=== PATIENT | male | born 1945 | race Caucasian/White ===

== ENCOUNTER 2017-10-12 17:32 | Inpatient (IN) | payer MEDICARE, OTHER ==
[~2017-10-12] VITALS: Ht 165.1 cm; Wt 54.0 kg
--- NOTE | 2017-10-12 17:35 | NUR ---
BIB RELATIVE C/O CHEST PAIN ABOUT 12-20 MIN CAN PUSHER. PATIENT IS A/OX 1, BREATHING EVEN AND UNLABORED. NO SOB, NAD, VITALS STABLE. SAFETY AND COMFORT MEASURES IN PLACE. AWAITING MD ORDERS.
[2017-10-12] MEDS ORDERED: ACETAMINOPHEN 650 MG/SUPP.RECT RC ONE ×2 (17:52→18:00)
[2017-10-12] MEDS ORDERED: IV NS 0.9% 1,000 ML BAG IV ONE ×2 (18:00→19:30)
[2017-10-12] MEDS ORDERED: PIPERACILLIN /TAZOBACTAM 3.375 G in IV D5W 50 ML IV ONE (18:00)
[2017-10-12 18:01] LABS: BASOPHILS # (AUTO) 0.1 /CMM (0.0-0.2); BASOPHILS % (AUTO) 1.1 % (0.0-2.0); EOSINOPHILS % (AUTO) 0.4 % (0.0-6.0); HEMATOCRIT 41 % (39-51); HEMOGLOBIN 13.6 g/dL (13.5-17.5); LYMPHOCYTES # (AUTO) 0.3 /CMM (0.8-4.8); LYMPHOCYTES % (AUTO) 3.2 % (20.0-44.0); MEAN CORPUSCULAR HGB CONC 33 g/dl (31.0-36.0); MEAN CORPUSCULAR VOLUME 90 fL (80-96); MONOCYTES # (AUTO) 0.6 /CMM (0.1-1.30); MONOCYTES % (AUTO) 5.9 % (2.0-12.0); NEUTROPHILS # (AUTO) 9.1 /CMM (1.8-8.9); NEUTROPHILS % (AUTO) 89.4 % (43.0-81.0); PLATELET COUNT (AUTO) 243 /CMM (150-450); RDW COEFFICIENT OF VARIATION 15.6 (11.5-15.0); RED BLOOD CELL COUNT(AUTO) 4.61 MIL/uL (4.5-6.0); WHITE BLOOD COUNT (AUTO) 10.1 K/uL (4.3-11.0)
--- NOTE | 2017-10-12 18:06 | NUR ---
URINE COLLECTED VIA STRAIGHT CATH. CALLED LAB FOR SOFTWARE ENGINEER ADVISOR.
[2017-10-12] MEDS ORDERED: PIPERACILLIN /TAZOBACTAM 3.375 G VIAL IV ONE (18:07)
--- NOTE | 2017-10-12 18:10 | NUR ---
RADIOLOGY AT BEDSIDE FOR CXR
[2017-10-12 18:16] LABS: INR 0.97 (0.85-1.15)
[2017-10-12 18:19] LABS: ALANINE AMINOTRANSFERASE 30 U/L (12-78); ALBUMIN 3.4 g/dL (3.4-5.0); ALKALINE PHOSPHATASE 157 U/L (46-116); ASPARTATE AMINOTRANSFERASE 28 U/L (15-37); BILIRUBIN,DIRECT 0.2 mg/dL (0.0-0.2); BILIRUBIN,TOTAL 0.3 mg/dL (0.2-1.0); CALCIUM, SERUM 8.8 mg/dL (8.5-10.1); CARBON DIOXIDE 19 mmol/L (21-32); CHLORIDE 110 mmol/L (98-107); CREATININE 3.7 mg/dL (0.6-1.3); GLUCOSE 151 mg/dL (74-106); POTASSIUM 6.1 mmol/L (3.5-5.1); SODIUM SERUM 141 mmol/L (136-145); UREA NITROGEN, BLOOD 61 mg/dL (7-18)
--- NOTE | 2017-10-12 18:20 | NUR ---
RECTAL TEMP 101.9 DR. ELLIOTT MADE AWARE
[2017-10-12 18:22] LABS: TROPONIN I < 0.017 ng/mL (0.00-0.056)
[2017-10-12 18:53] LABS: APPEARANCE,URINE Clear (CLEAR); BILIRUBIN,URINE Negative (NEGATIVE); BLOOD, URINE Trace-lysed Ery/uL (NEGATIVE); COLOR,URINE Yellow (YELLOW); KETONES,URINE Negative (NEGATIVE); LEUKOCYTE ESTERASE ,URINE Negative (NEGATIVE); NITRITE, URINE Negative (NEGATIVE); PH,URINE 5.5 (5.0-8.0); PROTEIN,URINE >=300 mg/dl (NEGATIVE); UGLUCOSE Negative (NEGATIVE); UROBILINOGEN,URINE 0.2 EU/dL (0.2)
[2017-10-12 19:22] LABS: BACTERIA,URINE Rare /HPF (None Seen); RBC,URINE 2-3/HPF /HPF (0-2); SQUAMOUS EPITHELIAL CELL,UR Few /HPF (None Seen); WBC,URINE 0-2 /HPF (0-3)
[2017-10-12 19:23] LABS: MUCUS,URINE Few /LPF (None Seen); URINE AMORPHOUS URATE Many /HPF (None Seen)
--- NOTE | 2017-10-12 19:30 | NUR ---
CALLED NURSING SUPERVISOR [employer] AND REQUESTED A TELE BED FOR THIS PT.
--- NOTE | 2017-10-12 19:56 | NUR ---
ORAL TEMP 99. DR. ELLIOTT MADE AWARE
[2017-10-12 20:00] VITALS: BP 121/75
--- NOTE | 2017-10-12 20:00 | NUR ---
CALLED [facility] AND A PAGE WAS SENT OUT TO DR YADAV
--- NOTE | 2017-10-12 20:01 | NUR ---
PT IS ASSIGNED TO [facility]#: [id number], PT IS DIAGNOSED WITH SEPSIS, AND DR YADAV IS THE ACCEPTING MD
[2017-10-12] MEDS ORDERED: TRAM50TA2 PO (20:15)
[2017-10-12] MEDS ORDERED: LISI10TA5 PO (20:15)
[2017-10-12] MEDS ORDERED: OLAN5TAB3 PO (20:15)
[2017-10-12] MEDS ORDERED: DONE5TAB34 PO (20:15)
[2017-10-12] MEDS ORDERED: TEMA15CA PO (20:15)
[2017-10-12] MEDS ORDERED: ACET650T12 PO (20:15)
--- NOTE | 2017-10-12 20:16 | NUR ---
REPORT GIVEN TO KELLEN FOR [facility] BED 112-2
[2017-10-12] MEDS ORDERED: SODIUM POLYSTYRENE SULFONATE 15 G/60 ML BOTTLE ONE (20:28)
[2017-10-12] MEDS ORDERED: SODIUM POLYSTYRENE SULFONATE 15 G/60 ML BOTTLE PO ONE (20:30)
--- NOTE | 2017-10-12 20:46 | NUR ---
PT TRANSFERRED PER ACLS PROTOCOL.
[2017-10-12 21:00] VITALS: BP 121/75
[2017-10-12] MEDS ORDERED: ACETAMINOPHEN 325 MG TABLET PO PRN (21:00)
[2017-10-12] MEDS ORDERED: Z GUARD REMEDY 2 OZ OINT TP PRN (21:00)
[2017-10-12] MEDS ORDERED: ZOLPIDEM TARTRATE 5 MG TABLET PO PRN (21:00)
[2017-10-12] MEDS ORDERED: MAGNESIUM HYDROXIDE 30 ML UDC PO PRN (21:00)
[2017-10-12] MEDS ORDERED: ONDANSETRON HCL/PF 4 MG/2 ML VIAL IVP PRN (21:00)
[2017-10-12] MEDS ORDERED: TRAMADOL HCL 50 MG TABLET PO PRN (21:00)
[2017-10-12] MEDS ORDERED: HYDROCODONE/APAP 5/325MG 1 EACH TABLET PO PRN (21:00)
[2017-10-12] MEDS ORDERED: MAG HYDROX/AL HYDROX/SIMETH 30 ML UDC PO PRN (21:00)
[2017-10-12] MEDS ORDERED: ALBUTEROL FS 2.5 MG/3 ML VIAL.NEB NEB PRN (21:30)
[2017-10-12] MEDS ORDERED: VANCOMYCIN 1 GM in IV NS 0.9% 250 ML IV SCH (21:30)
[2017-10-12] MEDS ORDERED: hydrALAZINE HCL IV 20 MG VIAL IV PRN (21:30)
[2017-10-12] MEDS: IV NS 0.9% 1,000 ML IV PRN (21:38)
[2017-10-12] MEDS ORDERED: VANCOMYCIN 1 GM VIAL ONE (21:46)
[2017-10-12] MEDS ORDERED: VANCOMYCIN 1 GM in IV D5W 250 ML IV ONE (22:00)
[2017-10-12] MEDS ORDERED: ENOXAPARIN SODIUM 30 MG/0.3 ML DISP.SYRIN SQ SCH ×2 (22:00)
--- NOTE | 2017-10-12 23:03 | NUR ---
SUPERVISOR FRYER [employer]ARM NOTES RECEIVED PT FROM ER. REPORT GIVEN BY MARIO. PATIENT VITAL SIGN 127/78 HR OF 99 RESPI OF 15 AND O2 SAT AT 98 ON NASAL CANNULA 2L. NO SIGN OF RESPIRATORY DISTRESS OR SOB. PATIENT CLEANED AND PICTURE WAS TAKEN. WILL CONTINUE TO MONITOR PT CLOSELY. Addendum: 10/12/17 at 2305 by TIGIST JENKINS RN TEMP IS 98.8.
[2017-10-13] VITALS: BP 134/70
[2017-10-13 00:13] LABS: CARBON DIOXIDE 18 mmol/L (21-32); CHLORIDE 114 mmol/L (98-107); CREATININE 3.7 mg/dL (0.6-1.3); GLUCOSE 145 mg/dL (74-106); POTASSIUM 5.1 mmol/L (3.5-5.1); SODIUM SERUM 143 mmol/L (136-145); UREA NITROGEN, BLOOD 54 mg/dL (7-18)
--- NOTE | 2017-10-13 00:30 | NUR ---
DIRECTOR OF REGULATORY AFFAIRS NOTES PATIENT REFUSED TO TAKE AMBIEN FOR SLEEPING.
[2017-10-13] MEDS ORDERED: PIPERACILLIN /TAZOBACTAM 2.25 G VIAL IV ONE (01:29)
--- NOTE | 2017-10-13 03:02 | NUR ---
INVERTED BLOCK OPERATOR NOTES PATIENT TRYING TO GET OUT OF BED, CONFUSED. BED ALARM ON. REORIENTED TO PLACE, TIME.
[2017-10-13 04:00] VITALS: BP 136/74
[2017-10-13] MEDS: PIPERACILLIN /TAZOBACTAM 2.25 G in IV NS 0.9% 50 ML IV SCH ×3 (04:40→20:37)
[2017-10-13 07:12] LABS: BASOPHILS % (AUTO) 0.1 % (0.0-2.0); HEMATOCRIT 38 % (39-51); HEMOGLOBIN 12.4 g/dL (13.5-17.5); LYMPHOCYTES % (AUTO) 7.9 % (20.0-44.0); MEAN CORPUSCULAR HGB CONC 33 g/dl (31.0-36.0); MEAN CORPUSCULAR VOLUME 90 fL (80-96); MONOCYTES # (AUTO) 0.5 /CMM (0.1-1.30); MONOCYTES % (AUTO) 3.6 % (2.0-12.0); NEUTROPHILS # (AUTO) 11.5 /CMM (1.8-8.9); NEUTROPHILS % (AUTO) 86.4 % (43.0-81.0); PLATELET COUNT (AUTO) 237 /CMM (150-450); RDW COEFFICIENT OF VARIATION 16.1 (11.5-15.0); RED BLOOD CELL COUNT(AUTO) 4.16 MIL/uL (4.5-6.0); WHITE BLOOD COUNT (AUTO) 13.3 K/uL (4.3-11.0)
--- NOTE | 2017-10-13 07:14 | NUR ---
REAL ESTATE ASSOCIATE ATTORNEY NOTES NO ACUTE CHANGES NOTED DURING THE SHIFT. DUE MEDS GIVEN. PROVIDED COMFORT AND SAFETY. WILL ENDORSE TO THE AM NURSE
--- NOTE | 2017-10-13 07:21 | NUR ---
RN NOTES RECEIVED PT FROM TREASURY MANAGEMENT SALES CONSULTANT, A&0X2 ON 2L NC SATING WELL NO SOB OR DISTRESS NOTED. SR ON THE TELE MIKE HR 88. LLFA 20G IV SITE INTACT WITH IVF AT 75ML/HR. BED LOCKED AND IN LOWEST POSITION, CALL LIGHT WITHIN REACH, SIDE RAILS UPX3, WILL CONT TO MIKE.
[2017-10-13 07:26] LABS: CARBON DIOXIDE 19 mmol/L (21-32); CHLORIDE 115 mmol/L (98-107); CREATININE 3.3 mg/dL (0.6-1.3); GLUCOSE 76 mg/dL (74-106); MAGNESIUM 1.6 mg/dL (1.8-2.4); POTASSIUM 5.3 mmol/L (3.5-5.1); SODIUM SERUM 145 mmol/L (136-145); UREA NITROGEN, BLOOD 51 mg/dL (7-18)
[2017-10-13 07:27] LABS: CHOLESTEROL 114 mg/dL (<200); HDL CHOLESTEROL 40 mg/dL (40-60); LDL 63 mg/dL (0-99); TRIGLYCERIDES 62 mg/dL (30-150)
[2017-10-13 08:00] VITALS: BP 129/78
[2017-10-13] MEDS: OLANZAPINE 5 MG TABLET PO SCH ×2 (08:33→16:19)
[2017-10-13] MEDS: DONEPEZIL 5 MG TABLET PO SCH (08:33)
[2017-10-13] MEDS ORDERED: FEE PK DOSING 1 MIN EA MC ONE (08:33)
[2017-10-13] MEDS ORDERED: LISINOPRIL (10MG) 10 MG TABLET PO SCH (09:00)
[2017-10-13 12:00] VITALS: BP 108/62
[2017-10-13] MEDS: HEPARIN SODIUM, PORCINE 5000 UNITS/1 ML VIAL SQ SCH ×2 (12:09→23:04)
[2017-10-13] MEDS ORDERED: LACTULOSE 10 G/15 ML UDC (PYXIS) PO ONE (14:00)
[2017-10-13] MEDS ORDERED: Magnesium 1GM/D5W 100ML PREMIX PIGGYBACK IV ONE (14:30)
[2017-10-13 16:00] VITALS: BP 109/62
[2017-10-13] MEDS: IV NS 0.9% 1,000 ML IV PRN (16:18)
[2017-10-13] MEDS ORDERED: TEMAZEPAM 15 MG CAPSULE PO SCH (18:00)
--- NOTE | 2017-10-13 18:26 | NUR ---
RN NOTES PT REMAINED IN STABLE CONDITION THROUGHOUT THE SHIFT, ALL NEEDS MET. NO SIGNIFICANT CHANGES NOTED. WILL ENDORSE TO ONCOMING SHIFT.
--- NOTE | 2017-10-13 19:17 | NUR ---
DIORAMIST NOTES RECEIVED PT ON BED X3 WITH EPISODES OF CONFUSION. ON NC 2LPM SATURATING WELL. ON TELE MONITOR SR. IV ACCESS ON LFA #20 NS @75CC/HR. HEAD OF BED ELEVATED. SIDE RAILS UP. CALL LIGHT WITHIN REACH. BED ALARM ON. WILL CONTINUE TO MONITOR PT CLOSELY.
[2017-10-13 20:00] VITALS: BP 103/56
[2017-10-14] VITALS: BP 99/57
[2017-10-14 04:00] VITALS: BP 119/60
[2017-10-14] MEDS: IV NS 0.9% 1,000 ML IV PRN ×2 (04:45→20:17)
[2017-10-14] MEDS: PIPERACILLIN /TAZOBACTAM 2.25 G in IV NS 0.9% 50 ML IV SCH ×3 (04:45→20:17)
--- NOTE | 2017-10-14 07:25 | NUR ---
PIPELINER NOTES NO ACUTE CHANGES NOTED DURING THE SHIFT. PROVIDED COMFORT AND SAFETY. DUE MEDS GIVEN. WILL ENDORSE TO THE PM NURSE FOR SILVER.
[2017-10-14 07:50] LABS: BASOPHILS % (AUTO) 0.1 % (0.0-2.0); HEMATOCRIT 33 % (39-51); HEMOGLOBIN 10.9 g/dL (13.5-17.5); LYMPHOCYTES # (AUTO) 1.8 /CMM (0.8-4.8); MEAN CORPUSCULAR HGB CONC 33 g/dl (31.0-36.0); MEAN CORPUSCULAR VOLUME 91 fL (80-96); MONOCYTES # (AUTO) 0.8 /CMM (0.1-1.30); MONOCYTES % (AUTO) 5.6 % (2.0-12.0); NEUTROPHILS # (AUTO) 11.2 /CMM (1.8-8.9); NEUTROPHILS % (AUTO) 79.3 % (43.0-81.0); PLATELET COUNT (AUTO) 211 /CMM (150-450); RED BLOOD CELL COUNT(AUTO) 3.67 MIL/uL (4.5-6.0); WHITE BLOOD COUNT (AUTO) 14.2 K/uL (4.3-11.0)
--- NOTE | 2017-10-14 07:55 | NUR ---
INTERNATIONAL MARKETING COORDINATOR NOTE: RECEIVED PATIENT IN BED, AWAKE, ALERT W/ BOUTS OF CONFUSION. ON RECRUITMENT INTERNSHIP, SB HR= 45-55. ON O2 2L/MIN VIA NC SATURATING 97%. DENIED ANY PAIN. HOB ELEVATED. (L) FORE ARM NOTED PATENT AND INTACT W/ NS@75CC/HR. BED ALARM AND LOCKED AT ALL TIMES. CALL LIGHT WITHIN REACH. NEEDS ANTICIPATED.
[2017-10-14 08:00] VITALS: BP 98/53
[2017-10-14 08:05] LABS: CALCIUM, SERUM 8.1 mg/dL (8.5-10.1); CARBON DIOXIDE 18 mmol/L (21-32); CHLORIDE 109 mmol/L (98-107); CREATININE 3.1 mg/dL (0.6-1.3); GLUCOSE 77 mg/dL (74-106); POTASSIUM 4.6 mmol/L (3.5-5.1); SODIUM SERUM 139 mmol/L (136-145); UREA NITROGEN, BLOOD 50 mg/dL (7-18)
[2017-10-14] MEDS: DONEPEZIL 5 MG TABLET PO SCH (09:09)
[2017-10-14] MEDS: OLANZAPINE 5 MG TABLET PO SCH ×2 (09:10→17:56)
[2017-10-14 10:40] LABS: BAND % (MANUAL) 4 % (0.0-5.0); EOSINOPHILS % (MANUAL) 1 % (0-4); LYMPHOCYTES % (MANUAL) 13 % (16-48); MONOCYTES % (MANUAL) 1 % (0-11.0); NEUTROPHILS % (MANUAL) 81 (42-76)
[2017-10-14] MEDS: HEPARIN SODIUM, PORCINE 5000 UNITS/1 ML VIAL SQ SCH ×2 (11:13→23:38)
[2017-10-14 16:00] VITALS: BP 101/53
--- NOTE | 2017-10-14 17:44 | NUR ---
MS RN NOTE: CLARIFIED W/ DR. TAM RE: THE PATIENT'S RESTORIL ORDER @1800. ACCORDING TO THE PATIENT HE DOES NOT HAVE ANY PROBLEM W/ HIS SLEEP. HE DOES NOT THINK THAT HE NEEDED IT. W/ NEW ORDER, NOTED AND CARRIED OUT. PATIENT MADE AWARE.
--- NOTE | 2017-10-14 19:59 | NUR ---
MS RN NOTE: PATIENT IN BED, AWAKE, ALERT W/ BOUTS OF CONFUSION. ON O2 2L/MIN VIA NC SATURATING 97%. DENIED ANY PAIN. HOB ELEVATED. (L) FORE ARM NOTED PATENT AND INTACT W/ NS@75CC/HR. BED ALARM AND LOCKED AT ALL TIMES. CALL LIGHT WITHIN REACH. NEEDS ANTICIPATED. REPORT GIVEN TO PM SHIFT NURSE FOR CONTINUITY OF CARE.
[2017-10-14 20:00] VITALS: BP 89/43
[2017-10-14 21:00] VITALS: BP 89/43
--- NOTE | 2017-10-14 21:00 | NUR ---
RN NOTES RECEIVED REPORT FROM JEFFREY HAWLEY FOR SILVER. PATIENT ASLEEP IN BED, EASILY AROUSABLE. BREATHING EVEN & UNLABORED, TOLERATING O2 @ 2LPM. SKIN WARM, DRY & INTACT W/ PULSES PRESENT. NO RESPIRATORY OR CARDIAC DISTRESS NOTED. LEFT FOREARM IV #20 INTACT & PATENT W/ DRESSING CDI & IVF NS @ 75 ML/HR. NO S/S OF PAIN OR DISCOMFORT @ THIS TIME. SAFETY MEASURES IN PLACE W/ CALL LIGHT WITHIN REACH. BED ALARM ON. WILL CONTINUE TO MONITOR.
[2017-10-14] MEDS ORDERED: TEMAZEPAM 15 MG CAPSULE PO PRN (22:00)
[2017-10-15 05:00] VITALS: BP 110/53
[2017-10-15] MEDS: PIPERACILLIN /TAZOBACTAM 2.25 G in IV NS 0.9% 50 ML IV SCH ×2 (05:11→12:54)
[2017-10-15 06:59] LABS: CALCIUM, SERUM 7.9 mg/dL (8.5-10.1); CARBON DIOXIDE 17 mmol/L (21-32); CHLORIDE 110 mmol/L (98-107); CREATININE 3.2 mg/dL (0.6-1.3); GLUCOSE 81 mg/dL (74-106); POTASSIUM 4.8 mmol/L (3.5-5.1); SODIUM SERUM 138 mmol/L (136-145); UREA NITROGEN, BLOOD 51 mg/dL (7-18)
--- NOTE | 2017-10-15 07:53 | NUR ---
VISIT WITH PATIENT AT BEDSIDE ASSESSMENT TIME. SAYS HE HAS "BUTT PAIN". DENIES CHEST PAIN. CONFUSED AND PLEASANT AFFECT. SKIN CHECK. CLEAN DRY BRIEF. RIGHT SIDE LYING. NEEDS MET AT THIS TIME.
[2017-10-15 08:00] VITALS: BP 132/59
[2017-10-15] MEDS: OLANZAPINE 5 MG TABLET PO SCH (09:16)
[2017-10-15] MEDS: DONEPEZIL 5 MG TABLET PO SCH (09:16)
[2017-10-15] MEDS ORDERED: VANCOMYCIN 500 MG in IV D5W 100 ML IV SCH (10:00)
[2017-10-15 10:18] LABS: BASOPHILS % (AUTO) 0.1 % (0.0-2.0); EOSINOPHILS % (AUTO) 1.4 % (0.0-6.0); HEMATOCRIT 35 % (39-51); HEMOGLOBIN 11.1 g/dL (13.5-17.5); LYMPHOCYTES # (AUTO) 1.9 /CMM (0.8-4.8); LYMPHOCYTES % (AUTO) 18.4 % (20.0-44.0); MEAN CORPUSCULAR HGB CONC 32 g/dl (31.0-36.0); MEAN CORPUSCULAR VOLUME 91 fL (80-96); MONOCYTES # (AUTO) 0.8 /CMM (0.1-1.30); MONOCYTES % (AUTO) 7.5 % (2.0-12.0); NEUTROPHILS # (AUTO) 7.3 /CMM (1.8-8.9); NEUTROPHILS % (AUTO) 72.6 % (43.0-81.0); PLATELET COUNT (AUTO) 182 /CMM (150-450); RDW COEFFICIENT OF VARIATION 17.4 (11.5-15.0); RED BLOOD CELL COUNT(AUTO) 3.78 MIL/uL (4.5-6.0); WHITE BLOOD COUNT (AUTO) 10.1 K/uL (4.3-11.0)
[2017-10-15 11:10] LABS: LYMPHOCYTES % (MANUAL) 14 % (16-48); MONOCYTES % (MANUAL) 2 % (0-11.0); NEUTROPHILS % (MANUAL) 84 (42-76)
[2017-10-15] MEDS ORDERED: PIPE2.257 IV (11:19)
[2017-10-15] MEDS: IV NS 0.9% 1,000 ML IV PRN (11:24)
[2017-10-15] MEDS: HEPARIN SODIUM, PORCINE 5000 UNITS/1 ML VIAL SQ SCH (11:38)
[2017-10-15 14:15] VITALS: BP 109/61
[2017-10-15] MEDS ORDERED: PNEUMOCOCCAL 23-VAL P-SAC VAC 0.5 ML VIAL SQ ONE (15:30)
--- NOTE | 2017-10-15 16:20 | NUR ---
HANDOFF WITH AMBULANCE CREW. SPOKE WITH [facility] DIRECTORALFREDO. PATIENT TRANSFER WITH ALL MEDICATION AND BELONGINGS. IDENTIFICAION REMOVED. IV SITE REMOVED. CLEAN, DRY DRESSING IN PLACE. PATIENT NEEDS MET.
[2017-10-15] MEDS ORDERED: LACTOBACILLUS RHAMNOSUS GG 1 EACH CAP.SPRINK PO SCH (17:00)
== END 2017-10-15 16:25 | DRG 871 ==
LOC: ER 17:33 → TELE-TD 20:47 → TELE1 20:52 → MEDSG1 10-14 08:56
PROVIDERS: ADMIT Internal Medicine; ATTEND Internal Medicine
DX: A41.9 Sepsis, unspecified organism (principal); N17.0 Acute kidney failure with tubular necrosis; G92 Toxic encephalopathy; J15.6 Pneumonia due to other Gram-negative bacteria; J15.9 Unspecified bacterial pneumonia; E87.2 Acidosis; J98.11 Atelectasis; F02.81 Dementia in other diseases classified elsewhere, unspecified severity, with behavioral disturbance; E87.5 Hyperkalemia; K21.9 Gastro-esophageal reflux disease without esophagitis; D63.8 Anemia in other chronic diseases classified elsewhere; E78.5 Hyperlipidemia, unspecified; E83.42 Hypomagnesemia; F20.9 Schizophrenia, unspecified; N18.9 Chronic kidney disease, unspecified; I12.9 Hypertensive chronic kidney disease with stage 1 through stage 4 chronic kidney disease, or unspecified chronic kidney disease; Z87.891 Personal history of nicotine dependence; R07.9 Chest pain, unspecified; R53.81 Other malaise; R68.89 Other general symptoms and signs; G30.9 Alzheimer's disease, unspecified
CPT/HCPCS: 36415; 70450-TC; 71045-TC; 76770-TC; 80048-TC; 80061-TC; 80076-TC; 81000-TC; 83605-TC; 83735-TC; 84100-TC; 84484-TC; 85025-TC; 85730-TC; 87040-TC; 87081-TC; 87086-TC; 93307-TC; A4216; A4606; J1644; J1650; J2543; J3370; J3475; J7030; J7050; J7060; Z7610

== ENCOUNTER 2017-10-27 22:47 | Inpatient (IN) | payer MEDICARE, OTHER ==
[~2017-10-27] VITALS: Ht 172.7 cm; Wt 47.6 kg
[~2017-10-27 22:47] MED LIST: ACET650T12 PO; DONE5TAB34 PO; LISI10TA5 PO; OLAN5TAB3 PO; PIPE2.257 IV; TEMA15CA PO; TRAM50TA2 PO
--- NOTE | 2017-10-27 23:00 | NUR ---
ER ODILON RAMIREZ AT BEDSIDE FOR EVAL
[2017-10-27] MEDS ORDERED: PANTOPRAZOLE 40 MG VIAL ONE (23:25)
[2017-10-27] MEDS ORDERED: ONDANSETRON HCL/PF 4 MG/2 ML VIAL ONE (23:25)
--- NOTE | 2017-10-27 23:28 | NUR ---
EKG TA BEDSIDE
[2017-10-27] MEDS ORDERED: PANTOPRAZOLE 40 MG VIAL IV ONE (23:30)
[2017-10-27] MEDS ORDERED: ONDANSETRON HCL/PF 4 MG/2 ML VIAL IVP ONE (23:30)
[2017-10-27] MEDS ORDERED: IV NS 0.9% 500 ML BAG IV ONE (23:30)
--- NOTE | 2017-10-27 23:31 | NUR ---
BLOOD SENT TO LAB WITH HIV PREVENTION SPECIALIST
[2017-10-27 23:37] LABS: BASOPHILS # (AUTO) 0.5 /CMM (0.0-0.2); BASOPHILS % (AUTO) 4.1 % (0.0-2.0); EOSINOPHILS % (AUTO) 0.1 % (0.0-6.0); HEMATOCRIT 43 % (39-51); HEMOGLOBIN 14.3 g/dL (13.5-17.5); LYMPHOCYTES # (AUTO) 1.6 /CMM (0.8-4.8); LYMPHOCYTES % (AUTO) 13.8 % (20.0-44.0); MEAN CORPUSCULAR HGB CONC 34 g/dl (31.0-36.0); MEAN CORPUSCULAR VOLUME 90 fL (80-96); MONOCYTES # (AUTO) 0.7 /CMM (0.1-1.30); MONOCYTES % (AUTO) 6.1 % (2.0-12.0); NEUTROPHILS # (AUTO) 9.1 /CMM (1.8-8.9); NEUTROPHILS % (AUTO) 75.9 % (43.0-81.0); PLATELET COUNT (AUTO) 349 /CMM (150-450); RDW COEFFICIENT OF VARIATION 16.2 (11.5-15.0); RED BLOOD CELL COUNT(AUTO) 4.74 MIL/uL (4.5-6.0); WHITE BLOOD COUNT (AUTO) 11.9 K/uL (4.3-11.0)
--- NOTE | 2017-10-27 23:40 | NUR ---
PT OFF OT CT SCAN
--- NOTE | 2017-10-27 23:53 | NUR ---
PT BACK FROM CT SCAN
[2017-10-28 00:07] LABS: ALANINE AMINOTRANSFERASE 79 U/L (12-78); ALBUMIN 3.5 g/dL (3.4-5.0); ALKALINE PHOSPHATASE 162 U/L (46-116); ASPARTATE AMINOTRANSFERASE 69 U/L (15-37); BILIRUBIN,DIRECT 0.1 mg/dL (0.0-0.2); BILIRUBIN,TOTAL 0.4 mg/dL (0.2-1.0); CALCIUM, SERUM 9.4 mg/dL (8.5-10.1); CARBON DIOXIDE 23 mmol/L (21-32); CHLORIDE 104 mmol/L (98-107); CREATININE 3.9 mg/dL (0.6-1.3); GLUCOSE 102 mg/dL (74-106); LIPASE 223 U/L (73-393); SODIUM SERUM 137 mmol/L (136-145); TOTAL PROTEIN, SERUM 9.2 g/dL (6.4-8.2); UREA NITROGEN, BLOOD 57 mg/dL (7-18)
[2017-10-28 00:09] LABS: POTASSIUM 6.8 mmol/L (3.5-5.1)
[2017-10-28] MEDS ORDERED: SODIUM POLYSTYRENE SULFONATE 15 G/60 ML BOTTLE ONE (00:29)
[2017-10-28] MEDS ORDERED: FUROSEMIDE 20 MG/2 ML VIAL ONE (00:29)
[2017-10-28] MEDS ORDERED: SODIUM POLYSTYRENE SULFONATE 15 G/60 ML BOTTLE PO ONE (00:30)
[2017-10-28] MEDS ORDERED: SODIUM BICARBONATE SYR 50 MEQ/50 ML DISP.SYRIN IV ONE (00:30)
[2017-10-28] MEDS ORDERED: CALCIUM CHLORIDE 1,000 MG/10 ML DISP.SYRIN ONE (00:30)
[2017-10-28] MEDS ORDERED: FUROSEMIDE 40 MG/4 ML VIAL IV ONE (00:30)
[2017-10-28] MEDS ORDERED: DEXTROSE 50%-WATER 50 ML DISP.SYRIN ONE (00:30)
[2017-10-28] MEDS ORDERED: DEXTROSE 50%-WATER 50 ML DISP.SYRIN IV ONE (00:30)
[2017-10-28] MEDS ORDERED: INSULIN REGULAR, HUMAN 100 UNIT/ML 10 ML VIAL IV ONE (00:30)
[2017-10-28] MEDS ORDERED: CALCIUM CHLORIDE 1,000 MG/10 ML DISP.SYRIN IV ONE (00:30)
[2017-10-28] MEDS ORDERED: SODIUM BICARBONATE SYR 50 MEQ/50 ML DISP.SYRIN ONE (00:30)
[2017-10-28] MEDS ORDERED: ALBUTEROL FS 2.5 MG/3 ML VIAL.NEB NEB ONE (00:30)
[2017-10-28] MEDS ORDERED: INSULIN REGULAR, HUMAN 100 UNIT/ML 10 ML VIAL ONE (00:30)
--- NOTE | 2017-10-28 00:40 | NUR ---
BS IS 90
[2017-10-28] MEDS ORDERED: ALBUTEROL FS 2.5 MG/3 ML VIAL.NEB ONE (00:54)
--- NOTE | 2017-10-28 01:00 | NUR ---
RT AT BEDSIDE FOR BREATHING TX
--- NOTE | 2017-10-28 01:13 | NUR ---
REPEAT BS 185
--- NOTE | 2017-10-28 02:30 | NUR ---
TELE/ADMITTING RN NOTES: RECEIVED PT. IN VIA ROMEO FROM Ivan W/ MARLEEN FARAH. ASSISTED PT. TO BED. A/O X 1. KNOWN HIS NAME BUT UNABLE TO SAY WHAT YEAR, WHERE IS HE OR EVEN TIME. ON TELE MONITOR W/ SR. HAS LAC G 20 PATENT AND INTACT W/ NO S/S OF INFECTION/INFILTRATION NOTED. CALL LIGHT W/ REACH. BODY ASSESSMENT DONE W/ PICTURES DONE. WAITING FOR ORDERS FOR DR. WAGONER. WILL CONTINUE TO MONITOR.
[2017-10-28 02:51] VITALS: BP 114/76
[2017-10-28] MEDS ORDERED: ONDANSETRON HCL/PF 4 MG/2 ML VIAL IVP PRN (03:30)
[2017-10-28] MEDS ORDERED: ALBUTEROL FS 2.5 MG/3 ML VIAL.NEB NEB PRN (03:30)
[2017-10-28] MEDS ORDERED: ACETAMINOPHEN 650 MG/SUPP.RECT RC PRN (03:30)
--- NOTE | 2017-10-28 03:30 | NUR ---
RN/ TELE NOTES: IVF STARTED ALONG W/ ATB GIVEN PER ORDER. PT. HAD 3 X-TRA LARGE DIARRHEA PT. WAS GIVEN KAYEXALATE DUE TO HIGH K LEVEL. CALL LIGHT W/ REACH. WILL CONTINUE TO MONITOR.
[2017-10-28] MEDS: IV D5/ 0.9% NACL 1,000 ML IV PRN ×2 (03:44→23:46)
[2017-10-28] MEDS ORDERED: PIPERACILLIN /TAZOBACTAM 2.25 G VIAL IV ONE (03:48)
[2017-10-28] MEDS ORDERED: VANCOMYCIN 1 GM VIAL ONE (03:48)
[2017-10-28 04:00] VITALS: BP 126/82
[2017-10-28] MEDS ORDERED: VANCOMYCIN 0.75 GM in IV NS 0.9% 250 ML IV ONE (04:00)
[2017-10-28] MEDS: PIPERACILLIN /TAZOBACTAM 2.25 G in IV NS 0.9% 50 ML IV SCH ×3 (05:23→20:39)
[2017-10-28 06:30] LABS: TROPONIN I < 0.017 ng/mL (0.00-0.056)
[2017-10-28 06:31] LABS: BASOPHILS % (AUTO) 0.1 % (0.0-2.0); EOSINOPHILS % (AUTO) 0.4 % (0.0-6.0); HEMATOCRIT 39 % (39-51); LYMPHOCYTES # (AUTO) 2.1 /CMM (0.8-4.8); LYMPHOCYTES % (AUTO) 21.5 % (20.0-44.0); MEAN CORPUSCULAR HGB CONC 33 g/dl (31.0-36.0); MEAN CORPUSCULAR VOLUME 90 fL (80-96); MONOCYTES # (AUTO) 0.8 /CMM (0.1-1.30); NEUTROPHILS # (AUTO) 6.6 /CMM (1.8-8.9); PLATELET COUNT (AUTO) 367 /CMM (150-450); RDW COEFFICIENT OF VARIATION 16.3 (11.5-15.0); RED BLOOD CELL COUNT(AUTO) 4.34 MIL/uL (4.5-6.0); WHITE BLOOD COUNT (AUTO) 9.5 K/uL (4.3-11.0)
[2017-10-28 06:40] LABS: ALANINE AMINOTRANSFERASE 74 U/L (12-78); ALBUMIN 3.1 g/dL (3.4-5.0); ALKALINE PHOSPHATASE 142 U/L (46-116); ASPARTATE AMINOTRANSFERASE 70 U/L (15-37); CALCIUM, SERUM 9.3 mg/dL (8.5-10.1); CARBON DIOXIDE 26 mmol/L (21-32); CHLORIDE 109 mmol/L (98-107); CREATININE 3.8 mg/dL (0.6-1.3); GLUCOSE 101 mg/dL (74-106); LIPASE 187 U/L (73-393); MAGNESIUM 2.1 mg/dL (1.8-2.4); PHOSPHORUS 5.7 mg/dL (2.5-4.9); POTASSIUM 5.6 mmol/L (3.5-5.1); SODIUM SERUM 144 mmol/L (136-145); TOTAL PROTEIN, SERUM 8.2 g/dL (6.4-8.2); UREA NITROGEN, BLOOD 55 mg/dL (7-18)
--- NOTE | 2017-10-28 07:00 | NUR ---
RN/TELE NOTES: NO ACUTE CHANGES NOTED DURING THIS SHIFT. REPORT GIVEN TO AM NURSE FOR SILVER.
[2017-10-28 07:08] LABS: B-TYPE NATRIURETIC PEPTIDE 528 PG/ML (0-125); BILIRUBIN,TOTAL 0.4 mg/dL (0.2-1.0)
[2017-10-28 08:00] VITALS: BP 116/66
[2017-10-28] MEDS ORDERED: FEE PK DOSING 1 MIN EA MC ONE (08:42)
[2017-10-28] MEDS ORDERED: PANTOPRAZOLE 40 MG VIAL IV SCH (09:00)
[2017-10-28 12:00] VITALS: BP 94/60
[2017-10-28 16:00] VITALS: BP 120/65
--- NOTE | 2017-10-28 16:00 | NUR ---
RN NOTE PT CONFUSED, AOX1, WAS AGITATED ATTEMPTING TO GET OUT OF BED, REMOVING PREPARATION SUPERVISOR FREEZING, IV ACCESS, EVEN WITH SOFT RESTRAINTS IN PLACE, MAINTENANCE DATA ANALYST MAXINE STILES NOTIFIED, NO NEW ORDERS AT THIS TIME.
[2017-10-28 18:55] LABS: IRON, SERUM 97 ug/dl (50-175); TOTAL IRON BINDING CAPACITY 292 ug/dl (250-450)
--- NOTE | 2017-10-28 18:58 | NUR ---
TEXTED DR. LIM [facility].
--- NOTE | 2017-10-28 19:06 | NUR ---
PATIENT HAS TO BE NPO 6 HRS BEFORE EXAM.
--- NOTE | 2017-10-28 19:30 | NUR ---
TELE/RN NOTES: RECEIVED PT. IN BED A/O X 1. NO S/S OF RESPIRATORY DISTRESS NOTED. RA SAT. 99%. ON TELE MONITOR W/ SR. HAS IVF GOING ON VIA LEFT HAND G 20 PATENT AND INTACT W/ NO S/S OF INFECTION/INFILTRATION NOTED. WILL CONTINUE TO MONITOTR. ON BILATERAL SOFT WRIST RESTRAINS SECONDARY PT. PULLING OUT HIS IV LINES. WILL CONTINUE TO MONITOR.
[2017-10-28 20:00] VITALS: BP 106/64
[2017-10-29] VITALS (7 sets, daily range): BP systolic 109–148; BP diastolic 58–79
[2017-10-29] MEDS: PIPERACILLIN /TAZOBACTAM 2.25 G in IV NS 0.9% 50 ML IV SCH ×3 (06:04→22:18)
[2017-10-29 07:17] LABS: CALCIUM, SERUM 8.1 mg/dL (8.5-10.1); CARBON DIOXIDE 25 mmol/L (21-32); CHLORIDE 108 mmol/L (98-107); CREATININE 3.7 mg/dL (0.6-1.3); GLUCOSE 81 mg/dL (74-106); POTASSIUM 4.4 mmol/L (3.5-5.1); SODIUM SERUM 144 mmol/L (136-145); UREA NITROGEN, BLOOD 44 mg/dL (7-18)
--- NOTE | 2017-10-29 08:00 | NUR ---
RN NOTE PT COULD NOT GO THROUGH MRCP DUE TO UNCOOPERATIVE BEHAVIOR, SHIVANI COELLO NOTIFIED.
[2017-10-29] MEDS ORDERED: PANTOPRAZOLE 40 MG VIAL IV SCH (09:00)
--- NOTE | 2017-10-29 09:17 | NUR ---
UNABLE TO DO MRCP,PATIENT CONFUSED AND COMBATIVE PER WASHTUB WORKER LORENE,NURSE IS AWARE OF IT.
--- NOTE | 2017-10-29 14:00 | NUR ---
RN NOTE PT CAME BACK FROM OR FROM EGD, PT STABLE, VS STABLE, IVF RUNNING, WILL CONTINUE TO MONITOR. CALL LIGHT WITHIN REACH, PT ON RESTRAINTS.
[2017-10-29] MEDS ORDERED: VANCOMYCIN 500 MG in IV D5W 100 ML IV SCH (16:00)
[2017-10-29 16:04] LABS: BASOPHILS % (AUTO) 0.4 % (0.0-2.0); EOSINOPHILS % (AUTO) 6.3 % (0.0-6.0); HEMATOCRIT 34 % (39-51); HEMOGLOBIN 11.2 g/dL (13.5-17.5); LYMPHOCYTES # (AUTO) 1.6 /CMM (0.8-4.8); LYMPHOCYTES % (AUTO) 27.7 % (20.0-44.0); MEAN CORPUSCULAR HGB CONC 33 g/dl (31.0-36.0); MEAN CORPUSCULAR VOLUME 91 fL (80-96); MONOCYTES # (AUTO) 0.7 /CMM (0.1-1.30); MONOCYTES % (AUTO) 12.3 % (2.0-12.0); NEUTROPHILS # (AUTO) 3.1 /CMM (1.8-8.9); NEUTROPHILS % (AUTO) 53.3 % (43.0-81.0); PLATELET COUNT (AUTO) 277 /CMM (150-450); RDW COEFFICIENT OF VARIATION 16.9 (11.5-15.0); RED BLOOD CELL COUNT(AUTO) 3.77 MIL/uL (4.5-6.0); WHITE BLOOD COUNT (AUTO) 5.9 K/uL (4.3-11.0)
[2017-10-29 16:18] LABS: ALBUMIN 2.6 g/dL (3.4-5.0); BILIRUBIN,DIRECT 0.1 mg/dL (0.0-0.2); BILIRUBIN,TOTAL 0.3 mg/dL (0.2-1.0); TOTAL PROTEIN, SERUM 6.8 g/dL (6.4-8.2)
[2017-10-29] MEDS: PANTOPRAZOLE 40 MG TABLET.DR PO SCH (16:35)
[2017-10-29 17:33] LABS: APPEARANCE,URINE CLEAR (CLEAR); BILIRUBIN,URINE NEGATIVE (NEGATIVE); BLOOD, URINE 1+ Ery/uL (NEGATIVE); COLOR,URINE YELLOW (YELLOW); KETONES,URINE NEGATIVE (NEGATIVE); LEUKOCYTE ESTERASE ,URINE NEGATIVE (NEGATIVE); NITRITE, URINE NEGATIVE (NEGATIVE); PROTEIN,URINE 2+ mg/dl (NEGATIVE); UGLUCOSE NEGATIVE (NEGATIVE); UROBILINOGEN,URINE 0.2 EU/dL (0.2)
[2017-10-29 17:51] LABS: CREATININE, URINE 45.9 MG/DL (30.0-125.0); URINE TOTAL PROTEIN 191.3 mg/dL (0-11.9)
[2017-10-29 18:26] LABS: BACTERIA,URINE None seen /HPF (None Seen); CALCIUM OXALATE CRYSTALS,UR Few /HPF (None Seen); RBC,URINE NONE SEEN /HPF (0-2); SQUAMOUS EPITHELIAL CELL,UR Few /HPF (None Seen)
--- NOTE | 2017-10-29 20:00 | NUR ---
COLLETTE NURSE NOTES RECEIVED BEDSIDE REPORT. PT. IN BED A/O X 1. NO S/S OF LABORED BREATHING NOTED AT THIS TIME. RA SAT. 97%. ON TELE MONITOR W/ SR. HAS IVF GOING ON VIA LEFT HAND G 20,PATENT AND INTACT W/O S/S OF INFECTION/INFILTRATION. BILATERAL SOFT WRIST RESTRAINS ARE IN PLACE, SECONDARY TO PT. PULLING OUT HIS IV LINES. SAFETY MEASURES ARE IMPLEMENTED, BED IN LOWEST, LOCKED POSITION, SIDE RAILS ARE UP X2, CALL LIGHT WITHIN REACH. WILL CONTINUE TO MONITOR.
[2017-10-29 21:01] LABS: EOSINOPHIL,URINE None Seen
[2017-10-29] MEDS: IV D5/ 0.9% NACL 1,000 ML IV PRN (22:25)
[2017-10-30] VITALS: BP 127/70
[2017-10-30 01:00] VITALS: BP 127/70
[2017-10-30 04:00] VITALS: BP 118/72
[2017-10-30] MEDS: PIPERACILLIN /TAZOBACTAM 2.25 G in IV NS 0.9% 50 ML IV SCH ×3 (06:10→22:02)
--- NOTE | 2017-10-30 06:54 | NUR ---
COLLETTE NURSE NOTES PT IS STABLE,A/O X1. VS WNL , IV LINE PATIENT, RUNNING 70ML/H D5W VS, BED IN LOWEST, LOCKED POSITION.CALL LIGHT WITHIN REACH, PT ON BILATERAL SOFT WRIST RESTRAINTS. PT CARE WILL BE ENDORSE TO AM NURSE.
--- NOTE | 2017-10-30 07:30 | NUR ---
TELE/RN AM NOTES: RECEIVED PT. IN BED A/O X 1. NO S/S OF RESPIRATORY DISTRESS NOTED. RA SAT. 100%. ON TELE MONITOR W/ SR. IV ACCESS TO LEFT HAND INFILTRATED. WILL RE START. ON SOFT WRIST RESTRAIN BILATERAL. RELEASED AND CHECKED FOR CIRCULATION. GOOD PULSES. THEN WILL CHECK EVERY 2 HOURS. SEE NURSING FLOWSHEET FOR SKIN ISSUES. ON DIAPERS. SOFT DIET. WILL TURN AND REPOSITION Q 2HOURS. WILL CONTINUE TO MONITOR.
[2017-10-30 08:00] VITALS: BP 114/69
[2017-10-30 08:17] LABS: BASOPHILS % (AUTO) 0.2 % (0.0-2.0); EOSINOPHILS % (AUTO) 6.6 % (0.0-6.0); HEMATOCRIT 34 % (39-51); HEMOGLOBIN 11.2 g/dL (13.5-17.5); LYMPHOCYTES # (AUTO) 2.3 /CMM (0.8-4.8); LYMPHOCYTES % (AUTO) 31.2 % (20.0-44.0); MEAN CORPUSCULAR HGB CONC 33 g/dl (31.0-36.0); MEAN CORPUSCULAR VOLUME 91 fL (80-96); MONOCYTES # (AUTO) 0.7 /CMM (0.1-1.30); MONOCYTES % (AUTO) 8.9 % (2.0-12.0); NEUTROPHILS # (AUTO) 3.9 /CMM (1.8-8.9); NEUTROPHILS % (AUTO) 53.1 % (43.0-81.0); PLATELET COUNT (AUTO) 277 /CMM (150-450); RDW COEFFICIENT OF VARIATION 16.9 (11.5-15.0); RED BLOOD CELL COUNT(AUTO) 3.75 MIL/uL (4.5-6.0); WHITE BLOOD COUNT (AUTO) 7.4 K/uL (4.3-11.0)
[2017-10-30 08:31] LABS: ALANINE AMINOTRANSFERASE 50 U/L (12-78); ALBUMIN 2.6 g/dL (3.4-5.0); ALKALINE PHOSPHATASE 109 U/L (46-116); ASPARTATE AMINOTRANSFERASE 51 U/L (15-37); BILIRUBIN,TOTAL 0.4 mg/dL (0.2-1.0); CALCIUM, SERUM 8.2 mg/dL (8.5-10.1); CARBON DIOXIDE 23 mmol/L (21-32); CHLORIDE 108 mmol/L (98-107); CREATININE 3.4 mg/dL (0.6-1.3); GLUCOSE 79 mg/dL (74-106); MAGNESIUM 1.5 mg/dL (1.8-2.4); PHOSPHORUS 4.4 mg/dL (2.5-4.9); POTASSIUM 4.8 mmol/L (3.5-5.1); SODIUM SERUM 141 mmol/L (136-145); TOTAL PROTEIN, SERUM 7.1 g/dL (6.4-8.2); UREA NITROGEN, BLOOD 35 mg/dL (7-18)
[2017-10-30] MEDS: PANTOPRAZOLE 40 MG TABLET.DR PO SCH ×2 (08:58→16:17)
--- NOTE | 2017-10-30 09:30 | NUR ---
MS RN NOTES DC TELEMETRY PER DR. JIM DUE MEDS GIVEN.
--- NOTE | 2017-10-30 11:43 | NUR ---
MS RN NOTES MAGNESIUM IV STARTED.
[2017-10-30] MEDS ORDERED: Magnesium 1GM/D5W 100ML PREMIX 100 ML IV SCH (12:00)
--- NOTE | 2017-10-30 12:40 | NUR ---
MS RN NOTES ZOSYN IV STARTED.
--- NOTE | 2017-10-30 14:17 | NUR ---
MS RN NOTES VANCO IV STARTED. NOT GIVEN ON TIME. MEDICATION NOT IN CASSETTE EARLIER.
[2017-10-30] MEDS: VANCOMYCIN 0.75 GM in IV D5W 250 ML IV SCH (14:18)
[2017-10-30 16:00] VITALS: BP 105/57
[2017-10-30 16:22] LABS: OCCULT BLOOD STOOL NEGATIVE (NEGATIVE)
--- NOTE | 2017-10-30 19:23 | NUR ---
MS RN CLOSING NOTES: PT. RESTING IN BED A/O X 1. NO S/S OF RESPIRATORY DISTRESS NOTED. RA SAT. 100%. IV ACCESS TO LEFT UPPER ARM WITH D5NS AT 100 ML/HR RUNNING. SITE CLEAR. ON SOFT WRIST RESTRAINT BILATERAL. RELEASED AND CHECKED FOR CIRCULATION. Q 2 HOURS. TURNED AND REPOSTIONED Q 2HOURS. PM CARE DONE. ON DIAPERS. SOFT DIET. ALL NEEDS MET. SAFETY PRECAUTIONS IN PLACE. NO OTHER SIGNIFICANT CHANGE IN CONDITION. WILL ENDORSE TO NEXT SHIFT FOR SILVER.
--- NOTE | 2017-10-30 19:37 | NUR ---
MS RN NOTES RECEIVED PT ON BED. CONFUSED. A/OX1. TRYING TO GET OUT OF BED. ON TELE MONITOR SR. IV ACCESS ON JHOAN G#20 D5NS. RUNNING WELL. HEAD PF BED ELEVATED. SIDE RAILS UP. CALL LIGHT WITHIN REACH. BED ALARM ON. WILL CONTINUE TO MONITOR PT CLOSELY.
[2017-10-30 20:00] VITALS: BP 106/64
[2017-10-31] VITALS: BP 111/60
[2017-10-31] MEDS: IV D5/ 0.9% NACL 1,000 ML IV PRN (00:33)
[2017-10-31 04:00] VITALS: BP 132/65
[2017-10-31] MEDS: PIPERACILLIN /TAZOBACTAM 2.25 G in IV NS 0.9% 50 ML IV SCH ×3 (04:09→20:31)
--- NOTE | 2017-10-31 06:10 | NUR ---
MS RN NOTES CALLED DR EXPORT AGENT, REGARDING PT NEW ONSET OF RASHES AND ITCHINESS. WAITING FOR THE CALL BACK.
--- NOTE | 2017-10-31 06:47 | NUR ---
MS RN NOTES DR WAGONER CALLED BACK. ORDERED BENDARYL 25MG IV Q6H PRN FOR ITCHING
[2017-10-31] MEDS: diphenhydrAMINE HCL 50 MG/ML VIAL IV PRN ×2 (06:55→23:57)
[2017-10-31 07:04] LABS: CALCIUM, SERUM 8.1 mg/dL (8.5-10.1); CARBON DIOXIDE 22 mmol/L (21-32); CHLORIDE 108 mmol/L (98-107); CREATININE 3.7 mg/dL (0.6-1.3); GLUCOSE 71 mg/dL (74-106); POTASSIUM 4.3 mmol/L (3.5-5.1); SODIUM SERUM 141 mmol/L (136-145); UREA NITROGEN, BLOOD 35 mg/dL (7-18)
--- NOTE | 2017-10-31 07:15 | NUR ---
MS RN NOTES NO ACUTE CHANGES NOTED DURING THE SHIFT ASIDE FROM THE NEW ONSET RASHES. ALREADY CALLED THE DOCTOR GIVEN BENDARYL 25MG IV PRN FOR PAIN. DUE MEDS GIVEN. HEAD OF BED ELEVATED. CALL LIGHT IS PLACED WITHIN REACH. WILL ENDORSE TO THE AM NURSE FOR SILVER.
[2017-10-31 08:00] VITALS: BP 120/71
[2017-10-31] MEDS: MORPHINE SULFATE INJ 4 MG/ML DISP.SYRIN IV PRN (08:30)
[2017-10-31] MEDS: PANTOPRAZOLE 40 MG TABLET.DR PO SCH ×2 (08:30→17:54)
--- NOTE | 2017-10-31 09:01 | NUR ---
WOUND CARE CONSULT: PT PRESENTS WITH MULTIPLE SKIN ISSUES INCLUDING RASH TO FACE, ARMS AND ANTERIOR THIGHS. DEFER TO MD FOR RASH. PT NOTED TO HAVE RASH TO PERINEUM, INNER THIGHS, SCARRING TO SACRUM AND LEFT ARM HEALED AREAS, PRESENT ON ADMISSION. LEFT HEEL BRUISE NOTED. PT KICKS HIS LEGS AND BECOMES AGITATED AND COMBATIVE AT TIMES. PT IS INCONTINENT. RECOMMENDATIONS MADE FOR SKIN PROTECTION AND CARE. DISCUSSED WITH NURSING STAFF. TALIB ISOFLEX LOW AIRLOSS BED TO BE PLACED. ALL SKIN PROTECTION MEASURES IN PLACE. WILL SEE PRN. Jovanni Purdy IN AGREEMENT WITH PLAN OF CARE. Addendum: 10/31/17 at 0906 by BI BOX WNDNU Amended: Links added.
[2017-10-31] MEDS: NYSTATIN TOP POWDER 15 GM BOTTLE TP SCH ×2 (12:30→17:00)
[2017-10-31] MEDS ORDERED: NA PHOS,M-B/NA PHOS,DI-BA 1 EA ENEMA RC PRN (13:30)
[2017-10-31] MEDS ORDERED: MAGNESIUM CITRATE 296 ML BOTTLE PO ONE (13:30)
[2017-10-31] MEDS ORDERED: PEG 3350/NA SULF,BICARB,CL/KCL 4,000 ML BOTTLE PO ONE (13:30)
[2017-10-31] MEDS: VANCOMYCIN 0.75 GM in IV D5W 250 ML IV SCH (14:54)
--- NOTE | 2017-10-31 15:42 | NUR ---
RN NOTE RN awaiting return phone call from Jennifer STEVENSON In regards to the ordered bowel prep for EGD patient unable to take bowel prep in its entirety
[2017-10-31 16:00] VITALS: BP 123/66
[2017-10-31] MEDS: CLOTRIMAZOLE 1% 15 GM TUBE TP SCH (17:53)
--- NOTE | 2017-10-31 18:33 | NUR ---
RN CLOSING NOTE PATIENT STABLE THROUGHOUT THE DAY BILATERAL WRIST RESTRAINT REMAINED ATTACHED PATIENT RESTRAINTS RELEASED TOILETING OFFERED AND CIRCULATION CHECKED PER PROTOCOL , PATIENT REMAINS SATURATION WELL ON ROOM AIR , NO COMPLAINTS NOTED REMAINS INCONTINENCE, PATIENT ABLE TO MAKE NEEDS KNOWN HOWEVER CONFUSED AT TIMES
--- NOTE | 2017-10-31 19:30 | NUR ---
RN OPENING NOTES: RECEIVED PATIENT ON BED AWAKE ALERT TO NAME BUT GENERALLY CONFUSED AT THIS TIME, ASKING ABOUT SOMEBODY TO "CHECK HIS INSURANCE SO HE CAN BE REIMBURSED." REORIENTED PATIENT WARRANTED. ON ROOM AIR, NOT IN APPARENT DISTRESS. WITH BILATERAL WRIST RESTRAINTS. SAFETY MEASURES ENSURED AT ALL TIMES. CONTINUOUSLY MONITORED PATIENT.
[2017-10-31 20:00] VITALS: BP 135/75
--- NOTE | 2017-10-31 21:30 | NUR ---
RN NOTES: SPOKE TO DR ARTHUR PARRISH'S TIMBER MANAGEMENT TECHNICIAN RE COLONOSCOPY PREP. PATIENT UNCOOPERATIVE IN DRINKING PREP. WITH ORDERS TO INSERT NGT AND BEGIN PREP OF MAG CITRATE AND GOLYTLE ONCE NGT PLACEMENT CONFIRMED. NOTED AND CARRIED OUT. 2300 CXR RESULT IN. NGT IN STABLE POSITION. TO START BOWEL PREP ORDERED.
[2017-10-31] MEDS ORDERED: MAGNESIUM CITRATE 296 ML BOTTLE ONE (23:16)
[2017-11-01] MEDS: IV D5/ 0.9% NACL 1,000 ML IV PRN ×2 (03:26→21:58)
[2017-11-01 04:00] VITALS: BP 128/74
[2017-11-01] MEDS: PIPERACILLIN /TAZOBACTAM 2.25 G in IV NS 0.9% 50 ML IV SCH ×2 (05:08→13:46)
--- NOTE | 2017-11-01 06:40 | NUR ---
RN CLOSING NOTES: PATIENT ABLE TO TOLERATE BOWEL PREP WELL. NOTED BM CLEAR AT THIS TIME. RESTRAINTS REMAINED INTACT. FREQUENT SKIN CARE RENDERED. SAFETY MEASURES ENSURED. REMAINED NPO. CONTINUOUSLY MONITORED. TO ENDORSE TO AM SHIFT RN.
[2017-11-01 06:42] LABS: CALCIUM, SERUM 8.4 mg/dL (8.5-10.1); CARBON DIOXIDE 20 mmol/L (21-32); CHLORIDE 110 mmol/L (98-107); CREATININE 3.3 mg/dL (0.6-1.3); GLUCOSE 77 mg/dL (74-106); POTASSIUM 5.3 mmol/L (3.5-5.1); SODIUM SERUM 142 mmol/L (136-145); UREA NITROGEN, BLOOD 27 mg/dL (7-18)
[2017-11-01 08:00] VITALS: BP 144/87
--- NOTE | 2017-11-01 08:00 | NUR ---
MS RN NOTES PATIENT IN BED RESTING NO SOB OR ACUTE DISTRESS NOTED. PATIENT ALERT, ORIENTED X1. WITH NG TUBE IN LEFT OMER INTACT PATENT CLUMPED. PATIENT PREPED FOR COLONOSCOPY LAST NIGHT WAITING TO BE SCHEDULED. BED IN LOW LOCKED POSITION . CALL LIGHT WITHIN REACH. WILL CONTINUE TO MONITOR.
[2017-11-01 08:10] LABS: AFP, TUMOR MARKER 4.3 ng/mL (0.0-8.3)
[2017-11-01] MEDS: PANTOPRAZOLE 40 MG TABLET.DR PO SCH ×2 (09:00→17:02)
[2017-11-01] MEDS: CLOTRIMAZOLE 1% 15 GM TUBE TP SCH ×2 (09:41→17:02)
[2017-11-01] MEDS: NYSTATIN TOP POWDER 15 GM BOTTLE TP SCH ×2 (09:41→17:03)
--- NOTE | 2017-11-01 14:00 | NUR ---
MS RN NOTES PATIENT SEEN AND EVALUATED BY SHIVANI. B BEAR KEEPER ORDERS TO DC NG TUBE AND START PATIENT ON CLEAR LIQUIDS ALSO NPO AFTER MIDNIGHT FOR COLONOSCOPY FOR 11/02/2017.
[2017-11-01] MEDS: VANCOMYCIN 0.75 GM in IV D5W 250 ML IV SCH (14:34)
[2017-11-01 16:00] VITALS: BP_SYST 143; BP_SYST 181; BP_DIAS 85; BP_DIAS 90
--- NOTE | 2017-11-01 18:22 | NUR ---
MS RN NOTES PATIENT IN BED RESTING NO SON OR ACUTE DISTRESS NOTED. ALL DUE MEDICATIONS ADMINISTERED. ALL NEED MET WILL ENDORSE TO PM SHIFT SILVER.
[2017-11-01 20:00] VITALS: BP 114/66
[2017-11-02] VITALS: BP 144/89
[2017-11-02 04:00] VITALS: BP 153/70
--- NOTE | 2017-11-02 06:24 | NUR ---
RN CLOSING NOTES: NO S/S OF ACTIVE BLEEDING NOTED, PATIENT REMAINED NPO AFTER MIDNIGHT. NOTED BM CLEAR AT THIS TIME. RESTRAINTS REMAINED INTACT. FREQUENT SKIN CARE CHECKS AND RELEASED OF RESTRAINTS PROVIDED. SAFETY MEASURES TAKEN. BED IN THE LOWEST POSITION, SIDE RAILS UP X 2 ,PATIENT RESTED WELL AT NIGHT. WILL ENDORSE TO AM SHIFT FOR SILVER
[2017-11-02 07:05] LABS: EOSINOPHILS % (AUTO) 6.4 % (0.0-6.0); HEMATOCRIT 34 % (39-51); HEMOGLOBIN 10.9 g/dL (13.5-17.5); LYMPHOCYTES # (AUTO) 1.7 /CMM (0.8-4.8); LYMPHOCYTES % (AUTO) 31.3 % (20.0-44.0); MEAN CORPUSCULAR HGB CONC 32 g/dl (31.0-36.0); MEAN CORPUSCULAR VOLUME 92 fL (80-96); MONOCYTES # (AUTO) 0.8 /CMM (0.1-1.30); MONOCYTES % (AUTO) 14.4 % (2.0-12.0); NEUTROPHILS # (AUTO) 2.6 /CMM (1.8-8.9); NEUTROPHILS % (AUTO) 47.9 % (43.0-81.0); PLATELET COUNT (AUTO) 183 /CMM (150-450); RDW COEFFICIENT OF VARIATION 17.6 (11.5-15.0); RED BLOOD CELL COUNT(AUTO) 3.69 MIL/uL (4.5-6.0); WHITE BLOOD COUNT (AUTO) 5.4 K/uL (4.3-11.0)
[2017-11-02 07:28] LABS: CALCIUM, SERUM 8.2 mg/dL (8.5-10.1); CARBON DIOXIDE 22 mmol/L (21-32); CHLORIDE 111 mmol/L (98-107); GLUCOSE 91 mg/dL (74-106); POTASSIUM 5.2 mmol/L (3.5-5.1); SODIUM SERUM 141 mmol/L (136-145); UREA NITROGEN, BLOOD 21 mg/dL (7-18)
--- NOTE | 2017-11-02 07:47 | NUR ---
RN INITIAL NOTES: Received in bed, alert and oriented. On RA breath sounds clear. IVF infusing on JHOAN. Bilateral wrist restraints, circulation WNL. Skin redness generalized. Diapered for incontinence. Informed pt of Colonoscopy today and pt is in agreement. Pt stated his feet are cold and requested for socks, socks given and pt is thankful. bed low and locked. call light within reached. Initiated bed alarm. will continue to monitor.
[2017-11-02 08:00] VITALS: BP 166/78
[2017-11-02 08:22] LABS: EOSINOPHILS % (MANUAL) 7 % (0-4); LYMPHOCYTES % (MANUAL) 21 % (16-48); MONOCYTES % (MANUAL) 14 % (0-11.0); NEUTROPHILS % (MANUAL) 58 (42-76)
[2017-11-02] MEDS: PANTOPRAZOLE 40 MG TABLET.DR PO SCH ×2 (09:00→17:00)
[2017-11-02] MEDS: NYSTATIN TOP POWDER 15 GM BOTTLE TP SCH ×2 (09:58→19:00)
[2017-11-02] MEDS: CLOTRIMAZOLE 1% 15 GM TUBE TP SCH ×2 (09:58→17:00)
[2017-11-02 10:06] VITALS: BP 162/98
--- NOTE | 2017-11-02 10:13 | NUR ---
RN NOTES: Notified Dr Bradshaw of pt's bp 162/98 HR 57 and stated "just watch bp for now. " will continue to monitor.
--- NOTE | 2017-11-02 12:00 | NUR ---
RN NOTES; RESTING COMFORTABLY, NO DISTRESS NOTED. IV ON L AXILLA KEEPS ON BEEPING, CHECKED, HARD TO FLUSH. TRIED TO START IV BUT UNABLE TO FIND VEINS, NOTIFIED CN AND CN NOTIFIED PROGRAM COORDINATOR EXECUTIVE EDUCATION BUT STILL UNABLE TO FIND VEINS. WILL NOTIFY PICC LINE NURSE FOR POSSIBLE MIDLINE INSERTION. WILL CONT TO MONITOR.
[2017-11-02] MEDS: IV D5/ 0.9% NACL 1,000 ML IV PRN (13:36)
[2017-11-02 16:00] VITALS: BP 142/70
--- NOTE | 2017-11-02 18:30 | NUR ---
RN CLOSING NOTES: MIDLINE INSERTED ON KELSEY GAUGE 20. GENERALIZED RASHES BUT NO C/O ITCHING. INCONTINENCE CARE DONE. SKIN CARE DONE. RESTRAINTS ON, NO SKIN BREAKDOWN NOTED. WILL CONT TO MONITOR.
[2017-11-02 20:00] VITALS: BP 146/83
--- NOTE | 2017-11-02 21:10 | NUR ---
RN NOTES Received bedside report. patient in bed, alert and oriented x2. On RA with suturation of 95%. IVF infusing on JHOAN. Bilateral wrist restraints in place,circulation WNL. Skin redness generalized. Diapered for incontinence. Informed pt of Colonoscopy today and pt is in agreement. safety measures are implemented,bed low and locked position, call light within reached. Initiated bed alarm. will continue to monitor.
[2017-11-03 04:00] VITALS: BP 141/81
--- NOTE | 2017-11-03 05:30 | NUR ---
RN NOTES RECEIVED PATIENT IN BED WITH NO DISTRESS NOTED. NO PHYSICAL MANIFESTAN OF PAIN OR DISCOMFORT. ALERT AND RESPONSIVE WITH CONFUSION. BREATHING EVEN AND UNLABORED. WILL CONTINUE TO MONITOR
[2017-11-03 06:30] LABS: BASOPHILS % (AUTO) 0.6 % (0.0-2.0); EOSINOPHILS % (AUTO) 5.7 % (0.0-6.0); HEMATOCRIT 33 % (39-51); HEMOGLOBIN 10.7 g/dL (13.5-17.5); LYMPHOCYTES # (AUTO) 1.8 /CMM (0.8-4.8); LYMPHOCYTES % (AUTO) 37.4 % (20.0-44.0); MEAN CORPUSCULAR HGB CONC 32 g/dl (31.0-36.0); MEAN CORPUSCULAR VOLUME 92 fL (80-96); MONOCYTES # (AUTO) 0.6 /CMM (0.1-1.30); MONOCYTES % (AUTO) 11.5 % (2.0-12.0); NEUTROPHILS # (AUTO) 2.2 /CMM (1.8-8.9); NEUTROPHILS % (AUTO) 44.8 % (43.0-81.0); PLATELET COUNT (AUTO) 202 /CMM (150-450); RDW COEFFICIENT OF VARIATION 16.8 (11.5-15.0); RED BLOOD CELL COUNT(AUTO) 3.61 MIL/uL (4.5-6.0); WHITE BLOOD COUNT (AUTO) 4.9 K/uL (4.3-11.0)
--- NOTE | 2017-11-03 06:30 | NUR ---
RN NOTES NO ACUTE CHANGES NOTED AT THIS TIME, PATIENT V/S ARE STABLE, STILL ON BILATERAL SOFT WRIST RESTRAINTS. SAFETY PRECAUTIONS IMPLEMENTED, BED IN LOWEST, LOCKED POSITION, CALL LIGHT WITHIN REACH.PT CARE WILL BE ENDORSE TO AM NURSE.
[2017-11-03 07:00] LABS: CALCIUM, SERUM 7.9 mg/dL (8.5-10.1); CARBON DIOXIDE 22 mmol/L (21-32); CHLORIDE 112 mmol/L (98-107); CREATININE 2.8 mg/dL (0.6-1.3); GLUCOSE 72 mg/dL (74-106); POTASSIUM 4.3 mmol/L (3.5-5.1); SODIUM SERUM 143 mmol/L (136-145); UREA NITROGEN, BLOOD 17 mg/dL (7-18)
[2017-11-03 07:06] LABS: THYROID STIMULATING HORMONE 0.606 uIU/mL (0.358-3.74)
--- NOTE | 2017-11-03 07:12 | NUR ---
MS RN OPENING NOTE RECEIVED BEDSIDE SBAR REPORT. PATIENT IN BED RESTING NO SOB OR ACUTE DISTRESS NOTED. PATIENT ALERT, ORIENTED X1. PATIENT IS BED. BED IS LOCKED IN LOWEST POSITION, SIDE RAILS UP X3, BED ALARM IS ON. BILATERAL SOFT WRIST RESTRAINS ARE PRESENT. ORDER VERIFIED. PATIENT REMOVES IV LINE AND SCRATCHES SELF. CALL LIGHT WITHIN REACH. ALL NEEDS ARE MET. REPOSITIONED. PATIENT IS NPO. SCHEDULED FOR COLONOSCOPY. CONSENT OBTAINED BY PREVIOUS SHIFT RN. WILL CONTINUE TO ASSESS/MONITOR.
[2017-11-03 08:00] VITALS: BP 152/66
--- NOTE | 2017-11-03 09:56 | NUR ---
LEFT THE FLOOR VIA BED TO OR FOR COLONOSCOPY. DR JIM/[employer]ETH[employer] TEAM COMETEE MEMBER SIGNED CONSENT.
--- NOTE | 2017-11-03 11:22 | NUR ---
PATIENT RETURNED TO THE FLOOR. ORDER RECEIVED FROM DR GIBSON TO RESUME ALL MEDICATIONS AND ADVANCE DIET TOLERATED STARTING FROM CLEAR LIQUIDS.
[2017-11-03] MEDS: PANTOPRAZOLE 40 MG TABLET.DR PO SCH ×2 (11:53→18:31)
[2017-11-03] MEDS: CLOTRIMAZOLE 1% 15 GM TUBE TP SCH ×2 (11:57→18:34)
[2017-11-03] MEDS: NYSTATIN TOP POWDER 15 GM BOTTLE TP SCH ×2 (11:59→18:34)
[2017-11-03] MEDS: MORPHINE SULFATE INJ 4 MG/ML DISP.SYRIN IV PRN (12:02)
--- NOTE | 2017-11-03 14:51 | NUR ---
tolerated diet fine.advanced to full liquids
[2017-11-03 16:00] VITALS: BP 148/71
--- NOTE | 2017-11-03 17:12 | NUR ---
CAME TO ADMINISTER MEDICATIONS. PATIENT BECAME AGITATED AND STATED "YOU DON'T LET ME SLEEP, GO AWAY". WILL COME LATER TO ADMINISTER MEDICATIONS.
--- NOTE | 2017-11-03 18:16 | NUR ---
MS RN CLOSING NOTE PATIENT IN BED RESTING NO SOB OR ACUTE DISTRESS NOTED. PATIENT ALERT, ORIENTED X1. PATIENT IS BED. BED IS LOCKED IN LOWEST POSITION, SIDE RAILS UP X3, BED ALARM IS ON. BILATERAL SOFT WRIST RESTRAINS ARE PRESENT. ORDER VERIFIED. PATIENT REMOVES IV LINE AND SCRATCHES SELF. CALL LIGHT WITHIN REACH. ALL NEEDS ARE MET. REPOSITIONED. DIET ADVANCED TOLERATED. TOLERATES FULL LIQUID DIET WELL.
[2017-11-03] MEDS: diphenhydrAMINE HCL 50 MG/ML VIAL IV PRN (18:35)
--- NOTE | 2017-11-03 18:39 | NUR ---
PATIENT PRESENTS WITH REDNESS IN THE FACE AND RED SPOTS ON THE ARMS. Rebel MCCABE WAS INFORMED. Rebel MCCABE ASSESSED THE PATIENT AND SUSPECTED ALLERGIC DERMATITIS. BENADRYL ADMINISTERED ORDERED.
--- NOTE | 2017-11-03 18:40 | NUR ---
ALL DUE MEDICATIONS ADMINISTERED. SKIN CARE RENDERED ORDERED. WILL ENDORSE TO THE PLANT CLERK NURSE FOR SILVER.
[2017-11-03 20:00] VITALS: BP 149/59
[2017-11-04] MEDS: IV D5/ 0.9% NACL 1,000 ML IV PRN (03:07)
[2017-11-04 04:00] VITALS: BP_SYST 144; BP_SYST 150; BP_DIAS 58; BP_DIAS 60
[2017-11-04 06:42] LABS: BASOPHILS % (AUTO) 0.5 % (0.0-2.0); EOSINOPHILS % (AUTO) 4.6 % (0.0-6.0); HEMATOCRIT 34 % (39-51); LYMPHOCYTES # (AUTO) 2.5 /CMM (0.8-4.8); LYMPHOCYTES % (AUTO) 42.3 % (20.0-44.0); MEAN CORPUSCULAR HGB CONC 33 g/dl (31.0-36.0); MEAN CORPUSCULAR VOLUME 92 fL (80-96); MONOCYTES # (AUTO) 0.6 /CMM (0.1-1.30); MONOCYTES % (AUTO) 9.9 % (2.0-12.0); NEUTROPHILS # (AUTO) 2.5 /CMM (1.8-8.9); NEUTROPHILS % (AUTO) 42.7 % (43.0-81.0); PLATELET COUNT (AUTO) 176 /CMM (150-450); RDW COEFFICIENT OF VARIATION 17.3 (11.5-15.0); RED BLOOD CELL COUNT(AUTO) 3.67 MIL/uL (4.5-6.0); WHITE BLOOD COUNT (AUTO) 5.9 K/uL (4.3-11.0)
[2017-11-04 06:50] LABS: ALANINE AMINOTRANSFERASE 39 U/L (12-78); ALBUMIN 2.2 g/dL (3.4-5.0); ALKALINE PHOSPHATASE 98 U/L (46-116); ASPARTATE AMINOTRANSFERASE 42 U/L (15-37); BILIRUBIN,TOTAL 0.2 mg/dL (0.2-1.0); CALCIUM, SERUM 8.3 mg/dL (8.5-10.1); CARBON DIOXIDE 22 mmol/L (21-32); CHLORIDE 110 mmol/L (98-107); CREATININE 2.7 mg/dL (0.6-1.3); GLUCOSE 64 mg/dL (74-106); MAGNESIUM 1.6 mg/dL (1.8-2.4); PHOSPHORUS 3.5 mg/dL (2.5-4.9); POTASSIUM 4.6 mmol/L (3.5-5.1); SODIUM SERUM 142 mmol/L (136-145); TOTAL PROTEIN, SERUM 6.4 g/dL (6.4-8.2); UREA NITROGEN, BLOOD 17 mg/dL (7-18)
--- NOTE | 2017-11-04 06:50 | NUR ---
RN CLOSING NOTES NO SIGNIFICANT CHANGE OF CONDITION. VITAL SIGNS WNL. NO DISTRESS NOTED BREATHING EVEN AND UNLABORED. WILL ENDORSE TO AM SHIFT FOR CONTINUITY OF CARE.
--- NOTE | 2017-11-04 07:30 | NUR ---
PT RECEIVED A&0X1, EASILY AWOKEN BY TOUCH. PT WITH BI LAT SWR, NEURO INTACT. PT TOLERATING ROOM AIR WITHOUT SOB OR RESP DISTRESS. PT DENIES PAIN AND IS WITHOUT S/S OF DISTRESS OR DISCOMFORT. PT REPOSITIONED. PT WITH R UA MIDLINE INTACT AND OPERATIONAL AND IVC AT R SHOULDER INTACT AND SL. NIGHT NURSE ENDORSED PT DIET TO BE ADVANCED TOLERATED, WRITTEN ORDER REVIEWED. PT BED IN LOWEST LOCKED POSITION WITH HANDRAILSX2 AND CALL LLANES WITHIN REACH. PT BRIEFED ON TODAY'S POC AND IS WITHOUT CONCERN OR COMPLAINT, WILL REORIENTATE NEEDED.
[2017-11-04 08:00] VITALS: BP 170/74
[2017-11-04] MEDS: PANTOPRAZOLE 40 MG TABLET.DR PO SCH ×2 (09:09→16:42)
[2017-11-04] MEDS: CLOTRIMAZOLE 1% 15 GM TUBE TP SCH ×2 (09:10→16:41)
[2017-11-04] MEDS: Z GUARD REMEDY 2 OZ OINT TP PRN ×2 (09:10→16:40)
[2017-11-04] MEDS: NYSTATIN TOP POWDER 15 GM BOTTLE TP SCH ×2 (09:10→16:40)
[2017-11-04 10:00] VITALS: BP 145/68
[2017-11-04 12:00] VITALS: BP 152/74
--- NOTE | 2017-11-04 12:00 | NUR ---
MSRN NOTES. PT BP REPORTED TO JOB PRINTER APPRENTICE CC, JOB PRINTER APPRENTICE TO PLACE ORDERS.
[2017-11-04 12:14] LABS: *SPE A/G RATIO 0.9 (0.7-1.7); *SPE ALBUMIN 2.8 g/dL (2.9-4.4); *SPE ALPHA-1-GLOBULIN 0.2 g/dL (0.0-0.4); *SPE ALPHA-2-GLOBULIN 0.6 g/dL (0.4-1.0); *SPE BETA GLOBULIN 0.9 g/dL (0.7-1.3); *SPE GLOBULIN, TOTAL 3.2 g/dL (2.2-3.9); *SPE M-SPIKE 2.5 g/dL (Not Observed); *SPEGAMMA GLOBULIN 1.4 g/dL (0.4-1.8)
[2017-11-04] MEDS ORDERED: AMLO5TAB4 PO (14:27)
[2017-11-04] MEDS ORDERED: AMLODIPINE BESYLATE 5 MG TABLET PO SCH (14:30)
[2017-11-04] MEDS ORDERED: PANT40TA2 PO (14:35)
[2017-11-04 16:00] VITALS: BP 155/72
--- NOTE | 2017-11-04 19:25 | NUR ---
PT PREPARED FOR D/C PER JIG AND FIXTURE BUILDER. PT REMAINS A&0X1, COVERSATIONAL WITH VERY POOR RECALL. PT TOELRATING ROOM AIR WITHOUT SOB. PT DENIES PAIN. ALL WOUND CARE COMPLETED DURING SHIFT AND SKIN ASSESSMENT PHOTOGRAPHED AND CHARTED. PT WITH ALL BELONGINGS AND DOCUMEHNT SIGNED BY RNX2. PT CAREGIVER TO BE BREIFED ON SOH D/C PACKET. ITEMS PREPARED AND WAITING. WILL ENDOSRE TO NIGHT NURSE.
--- NOTE | 2017-11-04 19:35 | NUR ---
RN DC NOTE PT WAS DC HOME WITH CHARLENE . PT REMAINS A&0X1, AWAKE, VITAL SIGNS STABLE BP 136/74, PULSE 61, RESPIRATIONS 18, TEMPERATURE 97.8F, SO2 97% NO PAIN OR DISCOMFORT NOTED. ON ROOM AIR. NO DISTRESS NOTED, REMOVED MIDLINE FROM KELSEY NO S/S OF INFECTION/INFILTRATION NOTED, TIP IS INTACT, NO BLEEDING NOTED, REMOVED PERIPHERAL IV FROM LEFT UPPER ARM 22 GAUGE NO S/S OF INFECTION/INFILTRATION NOTED, NO S/S OF BLEEDING NOTED, TOLERATED PROCEDURE WELL WITHOUT DISCOMFORT, ASSISSTED PATIENT TO WHEELCHAIR AND WAS ACCOMPANIED TO CAR WITH BAG MACHINE OPERATOR HELPER WITH ALL SAFETY MEASURES. SKIN PICTURES WERE DONE BY AM SHIFT AND PLACED IN THE CHART. BELONGINGS LIST WAS SIGNED AND PLACED IN THE CHART BY AM SHIFT. PATIENT LEFT IN THE STABLE CONDITION.
== END 2017-11-04 18:35 | disposition home or self-care (01) | DRG 380 ==
LOC: ER 22:49 → TELE1 10-28 02:15 → MEDSG1 10-30 08:29
PROVIDERS: ADMIT Internal Medicine; ATTEND Internal Medicine
PROC: 0DB68ZX Excision of Stomach, Via Natural or Artificial Opening Endoscopic, Diagnostic (ICD-10-PCS; 2017-10-29)
PROC: 0DB48ZX Excision of Esophagogastric Junction, Via Natural or Artificial Opening Endoscopic, Diagnostic (ICD-10-PCS; principal; 2017-10-29 12:00)
PROC: 05H533Z Insertion of Infusion Device into Right Subclavian Vein, Percutaneous Approach (ICD-10-PCS; 2017-11-02)
PROC: B546ZZA Ultrasonography of Right Subclavian Vein, Guidance (ICD-10-PCS; 2017-11-02)
PROC: 0DBP8ZX Excision of Rectum, Via Natural or Artificial Opening Endoscopic, Diagnostic (ICD-10-PCS; 2017-11-03)
DX: K22.11 Ulcer of esophagus with bleeding (principal); N17.0 Acute kidney failure with tubular necrosis; L89.150 Pressure ulcer of sacral region, unstageable; R64 Cachexia; N18.4 Chronic kidney disease, stage 4 (severe); K29.71 Gastritis, unspecified, with bleeding; E87.5 Hyperkalemia; D62 Acute posthemorrhagic anemia; E44.1 Mild protein-calorie malnutrition; D50.0 Iron deficiency anemia secondary to blood loss (chronic); K86.1 Other chronic pancreatitis; N13.2 Hydronephrosis with renal and ureteral calculous obstruction; Z68.1 Body mass index [BMI] 19.9 or less, adult; F20.9 Schizophrenia, unspecified; D72.829 Elevated white blood cell count, unspecified; N18.9 Chronic kidney disease, unspecified; I12.9 Hypertensive chronic kidney disease with stage 1 through stage 4 chronic kidney disease, or unspecified chronic kidney disease; F41.9 Anxiety disorder, unspecified; K21.0 Gastro-esophageal reflux disease with esophagitis; G30.9 Alzheimer's disease, unspecified; F02.80 Dementia in other diseases classified elsewhere, unspecified severity, without behavioral disturbance, psychotic disturbance, mood disturbance, and anxiety; K59.00 Constipation, unspecified; R74.0 Nonspecific elevation of levels of transaminase and lactic acid dehydrogenase [LDH]; E78.5 Hyperlipidemia, unspecified; D63.1 Anemia in chronic kidney disease; N28.1 Cyst of kidney, acquired; K44.9 Diaphragmatic hernia without obstruction or gangrene; R21 Rash and other nonspecific skin eruption; L98.8 Other specified disorders of the skin and subcutaneous tissue; L30.4 Erythema intertrigo
CPT/HCPCS: 36415; 36569; 71045-TC; 76770-TC; 80048-TC; 80053-TC; 80076-TC; 80202-TC; 81000-TC; 82105; 82272-TC; 82378; 82570-TC; 82728-TC; 82746; 82784; 82962-TC; 83540-TC; 83690-TC; 83735-TC; 83880; 84100-TC; 84155; 84155-TC; 84165; 84300-TC; 84443-TC; 84484-TC; 85025-TC; 85730-TC; 86301; 86334; 86850-TC; 87081-TC; 88305-TC; 88313-TC; 88342; 92611-TC; A4216; A4606; C9113; J1200; J1815; J1940; J2270; J2405; J2543; J2704; J3370; J3475; J3490; J7030; J7040; J7042; J7050; J7060; J7070; Z7610